=== PATIENT | female | born 1995 | race American Indian/Alaskan Native ===

== ENCOUNTER 2020-08-27 04:52 | Emergency (ER) | payer SELFPAY ==
[2020-08-27 05:05] VITALS: BP 103/65
[2020-08-27] MEDS ORDERED: dexAMETHasone 4 MG/ML VIAL PO ONE (06:48)
[2020-08-27] MEDS ORDERED: PENICILLIN G BENZATHINE 1.2 MILLION UNIT/2 ML INJ IM STA (06:48)
--- NOTE | 2020-08-27 06:55 | Emergency Department Report ---
ED ENT HPI - General Chief complaint: Sore Throat Stated complaint: SORE THROAT Time Seen by Provider: 08/27/20 06:42 Source: patient Mode of arrival: Ambulatory Limitations: No Limitations - History of Present Illness MD complaint: sore throat -: Gradual Location: throat Severity: mild Quality: dull Consistency: constant Improves with: none Worsens with: swallowing, eating Associated Symptoms: sore throat. denies: gum swelling, toothache, discharge from ear, rhinorrhea - Related Data Allergies Allergy/AdvReac Type Severity Reaction Status Date / Time No Known Allergies Allergy Unverified 08/27/20 05:02 ED Dental HPI - General Chief complaint: Sore Throat Stated complaint: SORE THROAT Time Seen by Provider: 08/27/20 06:42 Source: patient Mode of arrival: Ambulatory Limitations: No Limitations - Related Data Allergies Allergy/AdvReac Type Severity Reaction Status Date / Time No Known Allergies Allergy Unverified 08/27/20 05:02 ED Review of Systems ROS: Stated complaint: SORE THROAT Other details as noted in HPI Comment: All other systems reviewed and negative ED Past Medical Hx - Past Medical History Hx Asthma: Yes - Surgical History Additional Surgical History: tonsillectomy, - Social History Smoking Status: Current Every Day Smoker Substance Use Type: Marijuana ED Physical Exam - General Limitations: No Limitations General appearance: alert, in no apparent distress - Head Head exam: Present: atraumatic, normocephalic - Eye Eye exam: Present: normal appearance - ENT ENT exam: Present: mucous membranes moist, other (Erythema to the pharynx bilaterally. No exudate. Tongue and uvula midline no drooling.) - Neck Neck exam: Present: normal inspection, lymphadenopathy (Lymphadenopathy to the left tonsillar node is noted.) - Respiratory Respiratory exam: Present: normal lung sounds bilaterally. Absent: respiratory distress - Cardiovascular Cardiovascular Exam: Present: regular rate, normal rhythm. Absent: systolic murmur, diastolic murmur, rubs, gallop - GI/Abdominal GI/Abdominal exam: Present: soft, normal bowel sounds - Extremities Exam Extremities exam: Present: normal inspection - Back Exam Back exam: Present: normal inspection - Neurological Exam Neurological exam: Present: alert, oriented X3 - Psychiatric Psychiatric exam: Present: normal affect, normal mood - Skin Skin exam: Present: warm, dry, intact, normal color. Absent: rash ED Course Vital Signs 08/27/20 05:03 Temperature 98.7 F Pulse Rate 102 H Respiratory 18 Rate Blood Pressure 103/65 O2 Sat by Pulse 97 Oximetry ED Medical Decision Making - Medical Decision Making 24-year-old female with no history of any compromised nontoxic appearance patient is euvolemic with no trismus no airway compromise unable to tolerate p.o. given history and examination low suspicion for this presentation being caused by peritonsillar abscess, Agusto, bacterial tracheitis, acute HIV, epiglottitis, retropharyngeal abscess. Critical care attestation.: If time is entered above; I have spent that time in minutes in the direct care of this critically ill patient, excluding procedure time. ED Disposition Clinical Impression: Pharyngitis Disposition: DC- TO HOME OR SELFCARE Is pt being admited?: No Does the pt Need Aspirin: No Condition: Stable Instructions: Pharyngitis, Strep Throat, Adult, [id number] Referrals: PRIMARY CARE, [Primary Care Provider] - 3-5 Days [facility] [Provider Group] - 3-5 Days
== END 2020-08-27 07:47 | disposition home or self-care (01) ==
LOC: ED 04:52
DX: J02.9 Acute pharyngitis, unspecified (principal); J45.909 Unspecified asthma, uncomplicated; F17.200 Nicotine dependence, unspecified, uncomplicated; F12.10 Cannabis abuse, uncomplicated; Z90.89 Acquired absence of other organs
CPT/HCPCS: 96372; 99282; J0561; J1100